=== PATIENT | male | born 1955 | race Caucasian/White ===

== ENCOUNTER 2018-08-26 07:49 | Outpatient (CLI) | payer BC, OTHER ==
--- NOTE | 2018-08-26 08:55 | RAD ---
LEFT ELBOW FOUR VIEWS: History: Left elbow pain. Prior surgery. FINDINGS: Radiocapitellar alignment is maintained. Metallic anchor at the base of the coronoid process from sathish or surgery. Bulky osteophytosis throughout the joints. Several small well corticated ossific fragment s line anteriorly and posteriorly to the elbow joint. No fluid distention of the joint capsule is roseann arent. IMPRESSION: Post-operative and severe osteoarthritic changes of the left elbow. No acute osseous abnormalities ar e demonstrated. POS: [facility]
--- NOTE | 2018-08-26 09:22 | RAD ---
RADIOGRAPH RIGHT KNEE FOUR VIEWS: 08/26/2018 8:04 A.M. HISTORY: A 63-year-old male with nontraumatic chronic right knee pain. COMPARISON: None. FINDINGS: Suprapatellar joint effusion. Minimal/mild DJD of the patellofemoral compartment. Lateral compartment joint space maintained without large osteophytes. At the medial compartment, there is moderate to severe joint space narrowing, mild sclerosis, moderat e osteophytosis, and mild irregularity of the articular surfaces. IMPRESSION: 1. Moderate to severe osteoarthrosis of the medial compartment. 2. Joint effusion. POS: [facility]
--- NOTE | 2018-08-26 09:23 | RAD ---
RADIOGRAPH RIGHT HIP TWO VIEWS: HISTORY: A 63-year-old male with nontraumatic right hip pain. FINDINGS: Femoral head contour is smooth and well maintained. Little or no hip joint space narrowing. No subc apital osteophytes. No fracture or dislocation. IMPRESSION: Negative. POS: [facility]
== END 2018-08-26 07:50 | disposition home or self-care (01) ==
LOC: NAV RAD 07:49
PROVIDERS: ATTEND Internal Medicine Rheumatology
DX: M25.551 Pain in right hip (principal); M25.561 Pain in right knee; M25.522 Pain in left elbow; M17.11 Unilateral primary osteoarthritis, right knee; M25.461 Effusion, right knee; M19.022 Primary osteoarthritis, left elbow; Z98.890 Other specified postprocedural states